=== PATIENT | male | born 1950 | race Caucasian/White ===

== ENCOUNTER → 2017-08-03 | Outpatient (CLI) | payer BC ==
[~2017-08-03] MED LIST: BENZ100C PO; GABA300C10; GUAI200T3 PO; HYDR25TA6 PO; LEVO150T5 PO; LISI1TAB7 PO; METH-356 PO; REGADENOSON 0.4 MG/5 ML SYRINGE ONE; RIVA10TA PO; WARF5TAB PO
== END | disposition home or self-care (01) ==
LOC: CFH 08:01
PROVIDERS: ATTEND Internal Medicine Cardiovascular Disease
DX: I25.9 Chronic ischemic heart disease, unspecified (principal); I50.1 Left ventricular failure, unspecified
CPT/HCPCS: 78452; 93017; A9502; J2785

== ENCOUNTER → 2017-08-10 | Outpatient (CLI) | payer BC ==
[~2017-08-10] MED LIST changes: -REGADENOSON 0.4 MG/5 ML SYRINGE ONE
== END | disposition home or self-care (01) ==
LOC: CVU 15:50
PROVIDERS: ATTEND Physician Assistant
DX: Z01.810 Encounter for preprocedural cardiovascular examination (principal); I08.3 Combined rheumatic disorders of mitral, aortic and tricuspid valves; I10 Essential (primary) hypertension; Z95.0 Presence of cardiac pacemaker; Z87.891 Personal history of nicotine dependence
CPT/HCPCS: 93306

== ENCOUNTER 2017-08-17 07:38 | Day surgery (SDC) | payer BC ==
[2017-08-16 11:35] VITALS: BP 121/80
[2017-08-16 12:18] LABS: BASOPHILS # (AUTO) 0.06 x10^3/uL (0-0.1); BASOPHILS % (AUTO) 1 % (0-1); EOSINOPHILS # (AUTO) 0.23 x10^3/uL (0-0.4); EOSINOPHILS % (AUTO) 3 % (1-7); LYMPHOCYTES # (AUTO) 2.01 x10^3/uL (1-3.4); LYMPHOCYTES % (AUTO) 24 % (22-44); MD NO; MEAN CORPUSCULAR HEMOGLOBIN 31.1 pg (27.5-34.5); MEAN CORPUSCULAR VOLUME 91.6 fL (81-97); MONOCYTES # (AUTO) 0.52 x10^3/uL (0.2-0.8); MONOCYTES % (AUTO) 6 % (2-9); NEUTROPHILS % (AUTO) 66 % (42-75); PLATELET COUNT 219 x10^3/uL (130-400); RED BLOOD COUNT 5.03 x10^6/uL (4.38-5.82)
[2017-08-16 12:27] LABS: ANION GAP 4 mmol/L (5-15); CALCIUM 8.4 mg/dL (8.5-10.1); CHLORIDE 109 mmol/L (98-107)
[2017-08-16 12:28] LABS: CREATININE 1.06 mg/dL (0.7-1.3)
[~2017-08-17] VITALS: Ht 190.5 cm; Wt 115.9 kg
[~2017-08-17 07:38] MED LIST changes: +CARV6.2512 PO; +FURO-93 PO; +LEVO137T3 PO; +POTA8TAB PO; +RIVA20TA PO
[2017-08-17] MEDS ORDERED: NITROGLYCERIN 5 MG/ML, 10ML ONE (08:14)
[2017-08-17] MEDS ORDERED: FENTANYL PF 100 MCG/2ML ONE (08:14)
[2017-08-17] MEDS ORDERED: TICAGRELOR 90 MG TABLET ONE (08:14)
[2017-08-17] MEDS ORDERED: VERAPAMIL 2.5 MG/ML, 2ML ONE (08:14)
[2017-08-17] MEDS ORDERED: BIVALIRUDIN 250 MG ONE (08:15)
[2017-08-17] MEDS ORDERED: HEPARIN 1,000 UNITS/ML, 10ML ONE (08:15)
[2017-08-17] MEDS ORDERED: LIDOCAINE 2%, 20ML ONE (08:15)
[2017-08-17] MEDS ORDERED: MIDAZOLAM 1 MG/ML, 2ML ONE (08:17)
[2017-08-17] MEDS ORDERED: SODIUM CHLORIDE 0.9% 1,000 ML IV SCH (09:57)
== END 2017-08-17 11:47 | disposition home or self-care (01) ==
LOC: CACL 07:38
PROVIDERS: ATTEND Internal Medicine Cardiovascular Disease
DX: I20.0 Unstable angina (principal); G89.29 Other chronic pain; I10 Essential (primary) hypertension; E03.9 Hypothyroidism, unspecified; I48.2 Chronic atrial fibrillation; I82.91 Chronic embolism and thrombosis of unspecified vein; I42.9 Cardiomyopathy, unspecified; Z79.01 Long term (current) use of anticoagulants; Z01.810 Encounter for preprocedural cardiovascular examination
CPT/HCPCS: 36415; 80048; 85025; 93458; 99156; C1769; C1894; J1644; J2250; J3010; J3490; Q9967; J0583

== ENCOUNTER → 2018-08-12 | Outpatient (CLI) | payer MEDICARE, BC ==
[~2018-08-12] MED LIST changes: -METH-356 PO; +METH10TA2 PO; -RIVA10TA PO; +RIVA10TA2 PO
== END | disposition home or self-care (01) ==
LOC: CVU 09:19
PROVIDERS: ATTEND Internal Medicine Cardiovascular Disease
DX: I08.1 Rheumatic disorders of both mitral and tricuspid valves (principal); I42.9 Cardiomyopathy, unspecified; I10 Essential (primary) hypertension; Z72.0 Tobacco use
CPT/HCPCS: 93306

== ENCOUNTER → 2018-10-09 | Outpatient (CLI) | payer BC, MEDICARE | END | disposition home or self-care (01) | LOC: CFH 14:46 | PROVIDERS: ATTEND Pain Medicine Interventional Pain Medicine | DX: M43.17 Spondylolisthesis, lumbosacral region (principal); M48.061 Spinal stenosis, lumbar region without neurogenic claudication | CPT/HCPCS: 72131 ==

== ENCOUNTER 2019-02-19 10:05 | Emergency (ER) | payer BC ==
[~2019-02-19] VITALS: Ht 188 cm; Wt 119.7 kg
[~2019-02-19 10:05] MED LIST changes: -GUAI200T3 PO; +GUAI200T37 PO; +LISI1TAB20 PO; -LISI1TAB7 PO
--- NOTE | 2019-02-19 10:19 | NUR ---
EKG IN TRIAGE
--- NOTE | 2019-02-19 10:45 | NUR ---
N/V/D FOR 3 DAYS WITH ABDOMINAL CRAMPING
[2019-02-19] MEDS ORDERED: DICYCLOMINE 20 MG TABLET ONE (10:52)
[2019-02-19 10:55] LABS: BASOPHILS # (AUTO) 0.05 x10^3/uL (0-0.1); BASOPHILS % (AUTO) 0 % (0-1); EOSINOPHILS # (AUTO) 0.44 x10^3/uL (0-0.4); EOSINOPHILS % (AUTO) 4 % (1-7); LYMPHOCYTES # (AUTO) 1.51 x10^3/uL (1-3.4); LYMPHOCYTES % (AUTO) 14 % (22-44); MD NO; MEAN CORPUSCULAR HEMOGLOBIN 32.2 pg (27.5-34.5); MEAN CORPUSCULAR HGB CONC 33.5 g/dL (33.2-36.2); MEAN CORPUSCULAR VOLUME 96.2 fL (81-97); MEAN PLATELET VOLUME 8.5 fL (7.4-10.4); MONOCYTES # (AUTO) 0.43 x10^3/uL (0.2-0.8); MONOCYTES % (AUTO) 4 % (2-9); NEUTROPHILS # (AUTO) 8.27 x10^3/uL (1.8-6.8); NEUTROPHILS % (AUTO) 77 % (42-75); PLATELET COUNT 229 x10^3/uL (130-400); RED BLOOD COUNT 4.89 x10^6/uL (4.38-5.82); RED CELL DISTRIBUTION WIDTH 14.2 % (9.4-14.8)
[2019-02-19] MEDS ORDERED: DICYCLOMINE 20 MG TABLET PO ONE (11:00)
--- NOTE | 2019-02-19 11:01 | NUR ---
AMBULATED TO XRAY
[2019-02-19 11:08] LABS: ALANINE AMINOTRANSFERASE 18 U/L (12-78); ALBUMIN 3.4 g/dL (3.4-5.0); ANION GAP 8 mmol/L (5-15); CALCIUM 8.8 mg/dL (8.5-10.1); CHLORIDE 111 mmol/L (98-107); CREATININE 1.21 mg/dL (0.7-1.3)
[2019-02-19 11:10] LABS: ALKALINE PHOSPHATASE 91 U/L (45-117); BILIRUBIN,TOTAL 1.2 mg/dL (0.2-1.0); TOTAL PROTEIN 7.9 g/dL (6.4-8.2)
[2019-02-19 11:33] LABS: MICROSCOPIC INDICATED
[2019-02-19 11:40] LABS: CULTURE INDICATED? NO
[2019-02-19 11:41] VITALS: BP 154/95
--- NOTE | 2019-02-19 11:42 | NUR ---
RESTING WITH EYES CLOSED
--- NOTE | 2019-02-19 12:19 | NUR ---
Patient/Caregiver given discharge instructions and they have confirmed that they understand the instructions. Patient ambulatory with steady gait.
== END 2019-02-19 12:21 | disposition home or self-care (01) ==
LOC: ED 12:10
DX: K52.9 Noninfective gastroenteritis and colitis, unspecified (principal)
CPT/HCPCS: 36415; 74021; 80053; 81001; 83605; 83690; 85025; 93005; 99284

== ENCOUNTER 2019-09-02 13:00 | Outpatient (CLI) | payer BC, MEDICARE | END 2019-09-02 23:59 | disposition home or self-care (01) | LOC: CVU 13:00 | PROVIDERS: ATTEND Internal Medicine Cardiovascular Disease | DX: I08.3 Combined rheumatic disorders of mitral, aortic and tricuspid valves (principal); I25.10 Atherosclerotic heart disease of native coronary artery without angina pectoris; I10 Essential (primary) hypertension | CPT/HCPCS: 93306 ==

== ENCOUNTER 2020-01-29 10:25 | Outpatient (CLI) | payer BC ==
[~2020-01-29 10:25] MED LIST changes: -WARF5TAB PO; +WARF5TAB2 PO
== END 2020-01-29 23:59 | disposition home or self-care (01) ==
LOC: CVU 10:25
PROVIDERS: ATTEND Registered Nurse
DX: I08.3 Combined rheumatic disorders of mitral, aortic and tricuspid valves (principal); I10 Essential (primary) hypertension
CPT/HCPCS: 93306

== ENCOUNTER → 2020-05-06 | Outpatient (CLI) | payer MEDICARE, BC | END | disposition home or self-care (01) | LOC: STAR 10:14 | PROVIDERS: ATTEND Anesthesiology | DX: Z01.812 Encounter for preprocedural laboratory examination (principal); Z20.828 Contact with and (suspected) exposure to other viral communicable diseases | CPT/HCPCS: 36415; 87635 ==

== ENCOUNTER → 2020-05-28 | Outpatient (CLI) | payer BC | END | disposition home or self-care (01) | LOC: STAR 09:11 | PROVIDERS: ATTEND Anesthesiology | DX: Z01.812 Encounter for preprocedural laboratory examination (principal); Z20.828 Contact with and (suspected) exposure to other viral communicable diseases | CPT/HCPCS: 36415; 87635 ==

== ENCOUNTER 2020-06-02 10:30 | Observation (INO) | payer BC ==
[~2020-06-02] VITALS: Ht 188 cm; Wt 119.3 kg
[2020-06-02] MEDS: PLEASE ENTER HEIGHT AND WEIGHT MC SCH ×2 (08:30→16:30)
[~2020-06-02 10:30] MED LIST changes: +ACETAMINOPHEN 325 MG TABLET PO PRN; +EPHEDRINE 50 MG/ML, 1ML IVPush PRN; +FENTANYL PF 100 MCG/2ML IV PRN; -GABA300C10; +GABA300C10 PO; +HYDROmorphone 1 MG/ML, 1ML INJ IVPush PRN; +LABETALOL 5MG/ML, 20ML IV PRN; +MEPERIDINE/PF 25MG/0.5ML IVPush PRN; +ONDANSETRON 2MG/ML, 2ML IVPush PRN; +OXYcodone 5 MG/5 ML ORAL.SOL UDC PO PRN; +PROMETHAZINE 25 MG/ML, 1ML IVPush PRN; +hydrALAzine 20 MG/ML, 1ML IV PRN
[2020-06-02] MEDS ORDERED: TIZA4CAP PO (11:44)
[2020-06-02] MEDS ORDERED: LEVO150T5 PO (11:44)
[2020-06-02] MEDS ORDERED: BUPR150T13 PO (11:44)
[2020-06-02] MEDS ORDERED: SPIR25TA5 PO (11:44)
[2020-06-02] MEDS ORDERED: SACU1TAB7 PO (11:44)
[2020-06-02] MEDS ORDERED: MORPHINE PO (11:45)
[2020-06-02] MEDS ORDERED: SODIUM CHLORIDE 0.9% 1,000 ML IV SCH (12:00)
[2020-06-02] MEDS: SODIUM CHLORIDE 0.9% 1,000 ML IV SCH ×2 (12:00→20:00)
[2020-06-02 12:05] VITALS: BP 140/90
[2020-06-02 12:15] LABS: BASOPHILS % (AUTO) 1 % (0-1); EOSINOPHILS % (AUTO) 2 % (1-7); LYMPHOCYTES % (AUTO) 19 % (22-44); MEAN CORPUSCULAR HEMOGLOBIN 31.8 pg (27.5-34.5); MEAN CORPUSCULAR HGB CONC 33.9 g/dL (33.2-36.2); MEAN PLATELET VOLUME 8.1 fL (7.4-10.4); MONOCYTES % (AUTO) 7 % (2-9); NEUTROPHILS % (AUTO) 71 % (42-75); PLATELET COUNT 208 x10^3/uL (130-400); RED BLOOD COUNT 4.95 x10^6/uL (4.38-5.82); RED CELL DISTRIBUTION WIDTH 14.1 % (9.4-14.8)
[2020-06-02 12:22] LABS: INTERNATIONAL NORMALIZED RATIO 1.07 (0.93-1.1); PROTHROMBIN TIME 11.3 Seconds (9.6-11.5)
[2020-06-02 12:24] LABS: ANION GAP 4 mmol/L (5-15); CALCIUM 8.6 mg/dL (8.5-10.1); CHLORIDE 112 mmol/L (98-107); CREATININE 1.11 mg/dL (0.7-1.3)
[2020-06-02 12:30] LABS: MD NO
[2020-06-02] MEDS ORDERED: FENTANYL PF 250 MCG/5ML ONE (12:51)
[2020-06-02] MEDS ORDERED: CEFAZOLIN 1,000 MG ONE (13:04)
[2020-06-02] MEDS ORDERED: KETOROLAC 30 MG/1 ML ONE (13:08)
[2020-06-02] MEDS ORDERED: DEXAMETHASONE 4 MG/ML, 1ML ONE ×3 (13:08→14:30)
[2020-06-02] MEDS ORDERED: LIDOCAINE 1%, 20ML ONE (13:08)
[2020-06-02] MEDS ORDERED: EPINEPHRINE 1 MG/ML, 1ML ONE (13:26)
[2020-06-02] MEDS ORDERED: SUCCINYLCHOLINE 20 MG/ML, 10ML ONE (14:30)
[2020-06-02] MEDS ORDERED: ONDANSETRON 2MG/ML, 2ML ONE (14:30)
[2020-06-02] MEDS ORDERED: PROPOFOL 10 MG/ML, 20ML ONE (14:30)
[2020-06-02] MEDS ORDERED: HOLD MEDICATION MC PRN (15:00)
[2020-06-02 16:15] VITALS: BP 143/91
[2020-06-02 19:34] VITALS: BP 133/87
[2020-06-02] MEDS: GABAPENTIN 300 MG CAPSULE HOMEMEDPO SCH ×2 (21:00→22:23)
[2020-06-02] MEDS: CARVEDILOL 12.5 MG TABLET PO SCH (22:23)
[2020-06-02] MEDS: SODIUM CHLORIDE FLUSH 10ML SYR IVF SCH (22:24)
[2020-06-03 01:33] VITALS: BP 131/69
[2020-06-03 07:39] VITALS: BP 134/71
[2020-06-03] MEDS: CARVEDILOL 12.5 MG TABLET PO SCH (08:15)
[2020-06-03] MEDS: GABAPENTIN 300 MG CAPSULE HOMEMEDPO SCH (08:15)
[2020-06-03] MEDS: SODIUM CHLORIDE FLUSH 10ML SYR IVF SCH (08:16)
[2020-06-03] MEDS ORDERED: SPIRONOLACTONE 25 MG TABLET PO SCH (09:00)
[2020-06-03] MEDS ORDERED: BUPROPION SR 150 MG TABLET PO SCH (09:00)
[2020-06-03] MEDS ORDERED: LEVOTHYROXINE 150 MCG TABLET PO SCH (09:00)
== END 2020-06-03 15:27 | disposition home or self-care (01) ==
LOC: CACL 10:30 → 5SO 14:51 → CACL 14:51 → 5SO 16:00 → DCLOUNGE 06-03 15:09
PROVIDERS: ADMIT Internal Medicine Clinical Cardiac Electrophysiology; ATTEND Internal Medicine Clinical Cardiac Electrophysiology
DX: I42.8 Other cardiomyopathies (principal); I11.0 Hypertensive heart disease with heart failure; I50.22 Chronic systolic (congestive) heart failure; I48.91 Unspecified atrial fibrillation; I73.9 Peripheral vascular disease, unspecified; R06.02 Shortness of breath; E66.9 Obesity, unspecified; E03.9 Hypothyroidism, unspecified; F17.210 Nicotine dependence, cigarettes, uncomplicated; Z86.718 Personal history of other venous thrombosis and embolism; Z86.711 Personal history of pulmonary embolism; Z79.899 Other long term (current) drug therapy
CPT/HCPCS: 33225; 33233; 33249; 36415; 71045; 71046; 80048; 85025; 85610; 93005; C1769; C1882; C1887; C1892; C1895; C1900; G0378; J0171; J0330; J0690; J1100; J1885; J2405; J2704; J3010; J3490; Q9967

== ENCOUNTER → 2020-08-11 | Outpatient (CLI) | payer MEDICARE ==
[~2020-08-11] MED LIST changes: -ACETAMINOPHEN 325 MG TABLET PO PRN; +BUPR150T13 PO; -EPHEDRINE 50 MG/ML, 1ML IVPush PRN; -FENTANYL PF 100 MCG/2ML IV PRN; -HYDROmorphone 1 MG/ML, 1ML INJ IVPush PRN; -LABETALOL 5MG/ML, 20ML IV PRN; -MEPERIDINE/PF 25MG/0.5ML IVPush PRN; +MORPHINE PO; -ONDANSETRON 2MG/ML, 2ML IVPush PRN; -OXYcodone 5 MG/5 ML ORAL.SOL UDC PO PRN; -PROMETHAZINE 25 MG/ML, 1ML IVPush PRN; +SACU1TAB7 PO; +SPIR25TA5 PO; +TIZA4CAP PO; -hydrALAzine 20 MG/ML, 1ML IV PRN
== END | disposition home or self-care (01) ==
LOC: CFH 09:33
PROVIDERS: ATTEND Internal Medicine
DX: T82.110A Breakdown (mechanical) of cardiac electrode, initial encounter (principal); I48.20 Chronic atrial fibrillation, unspecified; I42.8 Other cardiomyopathies; I47.2 Ventricular tachycardia; I50.9 Heart failure, unspecified; I51.7 Cardiomegaly; Y83.8 Other surgical procedures as the cause of abnormal reaction of the patient, or of later complication, without mention of misadventure at the time of the procedure; Y92.89 Other specified places as the place of occurrence of the external cause; Z95.810 Presence of automatic (implantable) cardiac defibrillator
CPT/HCPCS: 71046

== ENCOUNTER 2020-10-27 12:13 | Emergency (ER) | payer SELFPAY ==
[~2020-10-27] VITALS: Ht 190.5 cm; Wt 127.8 kg
[2020-10-27] MEDS ORDERED: SODIUM CHLORIDE FLUSH 10ML SYR IVF ONE (13:30)
--- NOTE | 2020-10-27 13:40 | NUR ---
PT SITTING ON GURNEY CALMLY, WATCHING TV. NADN/VSS. NO NEEDS AT THIS TIME. CALL LIGHT WITHIN REACH.
[2020-10-27 13:46] LABS: BASOPHILS % (AUTO) 1 % (0-1); EOSINOPHILS % (AUTO) 3 % (1-7); LYMPHOCYTES % (AUTO) 19 % (22-44); MEAN CORPUSCULAR HEMOGLOBIN 31.8 pg (27.5-34.5); MEAN CORPUSCULAR HGB CONC 33.5 g/dL (33.2-36.2); MEAN PLATELET VOLUME 8.1 fL (7.4-10.4); MONOCYTES % (AUTO) 6 % (2-9); NEUTROPHILS % (AUTO) 72 % (42-75); PLATELET COUNT 220 x10^3/uL (130-400); RED BLOOD COUNT 4.63 x10^6/uL (4.38-5.82); RED CELL DISTRIBUTION WIDTH 15.2 % (9.4-14.8)
[2020-10-27 13:50] LABS: MD NO
[2020-10-27 13:56] LABS: ALANINE AMINOTRANSFERASE 16 U/L (12-78); ALBUMIN 3.7 g/dL (3.4-5.0); ANION GAP 5 mmol/L (5-15); CHLORIDE 111 mmol/L (98-107)
[2020-10-27 14:01] LABS: ALKALINE PHOSPHATASE 94 U/L (45-117); BILIRUBIN,TOTAL 1.3 mg/dL (0.2-1.0); TOTAL PROTEIN 7.9 g/dL (6.4-8.2); TROPONIN I < 0.015 ng/mL (0.000-0.045)
--- NOTE | 2020-10-27 14:47 | NUR ---
Patient given discharge instructions and they have confirmed that they understand the instructions. Patient ambulatory with steady gait.
[2020-10-27 14:48] VITALS: BP 159/110
== END 2020-10-27 14:51 | disposition home or self-care (01) ==
LOC: ED 14:45
DX: I11.0 Hypertensive heart disease with heart failure (principal); I50.9 Heart failure, unspecified; R06.00 Dyspnea, unspecified; R07.89 Other chest pain; R05 Cough; R06.02 Shortness of breath; I44.7 Left bundle-branch block, unspecified; F17.210 Nicotine dependence, cigarettes, uncomplicated
CPT/HCPCS: 36415; 71045; 80053; 83880; 84484; 85025; 93005; 99285